=== PATIENT | male | born 1935 | race Caucasian/White ===

== ENCOUNTER 2016-11-09 15:50 | Observation (INO) ==
[2016-11-09 16:18] LABS: Basophils # 0.1 K/mcL (0.0-0.2); Basophils % 0.6 %; Eosinophils # 0.5 K/mcL (0.0-0.6); Eosinophils % 3.3 %; Hematocrit 46.2 % (37.5-50.1); Hemoglobin 15.3 g/dL (12.9-16.9); Lymphocytes # 2.9 K/mcL (0.6-4.6); Lymphocytes % 20.5 %; Mean Corpuscular HGB Conc 33.1 g/dL (31.6-35.5); Mean Corpuscular Hemoglobin 30.5 pg (28.0-33.3); Mean Corpuscular Volume 92.2 fL (83.0-100.0); Mean Platelet Volume 10.1 fL (9.4-12.4); Monocytes # 1.4 K/mcL (0.0-1.3); Neutrophils # 9.3 K/mcL (1.6-8.9); Platelet Count 299 K/mcL (140-400); Red Blood Count 5.01 M/mcL (4.19-5.50); Segmented Neutrophils % 64.6 %
[2016-11-09 16:27] LABS: Prothrombin Time 10.8 Seconds (9.4-12.1)
[2016-11-09 16:29] LABS: Activated Partial Thrombo Time 34.1 Seconds (26.0-36.0); BUN/Creatinine Ratio 22 (6-26); Blood Urea Nitrogen 23 mg/dL (8-26); Calcium 9.3 mg/dL (8.6-10.8); Carbon Dioxide 26 mEq/L (19-29); Chloride 106 mEq/L (98-109); Glucose 106 mg/dL (70-99); Osmolality,Calculated 294 (280-300); Potassium 4.1 mEq/L (3.5-4.5); Sodium 140 mEq/L (136-145); eGFR For African Americans > 60 (> 60); eGFR For Non-African Americans > 60 (> 60)
--- NOTE | 2016-11-09 16:35 | Emergency Department Note ---
Disposition Clinical Impression: TIA (transient ischemic attack) Disposition: Admitted As Inpatient Condition: Good Time of Disposition: 18:08 Neuro HPI - General Chief Complaint: ED Neuro Symptoms/Deficit Stated Complaint: ester sharp poss tia Time Seen by Provider: 11/09/16 15:57 Source: patient Mode of arrival: ambulatory Limitations: no limitations Nursing Notes Reviewed: Yes Vital Signs Reviewed: Yes - History of Present Illness HPI Narrative: MA 10-year-old male with history of ischemic stroke approximately 3 years ago with residual right-sided weakness presents for abrupt onset of garbled speech and left-sided facial droop that occurred 30 minutes prior to arrival. According to his , he has been having spells like this occasionally for the last week as much as once a day that will last only a few minutes each time. This time, the symptoms did not go away and she was able to convince him to come to the hospital. She denied any other signs of problems including weakness. She states that during the episode he was able to ambulate at his baseline. She states that he is confused at baseline as well and this is not worse from usual. She states that on arrival to the emergency department his symptoms appear to be partially improved, but he is still not back to normal. He has no known malignancy. No known ischemic stroke in the last year. No known hemorrhagic stroke. No recent trauma or surgery. No black or bloody stools. - Related Data Home Medications: Home Medications Medication Instructions Recorded Confirmed Amlodipine Besylate/Benazepril 1 cap PO 11/09/16 11/09/16 [Lotrel 5-10 mg Capsule] Aspirin 81 mg PO 11/09/16 11/09/16 Cholecalciferol (Vitamin D3) 1,000 unit PO [facility] 11/09/16 11/09/16 [Vitamin D] Clopidogrel [Plavix] 75 mg PO [facility] 11/09/16 11/09/16 Cyanocobalamin (Vitamin B-12) 1,000 mcg PO [facility] 11/09/16 11/09/16 [Vitamin B12] Fish Oil/Dha/Epa [Fish Oil 1,200 1,200 mg PO [facility] 11/09/16 11/09/16 mg Fish Oil] Multivitamin [One Daily Essential] 1 tab PO [facility] 11/09/16 11/09/16 Simvastatin [Zocor] 20 mg PO 11/09/16 11/09/16 Tamsulosin [Flomax] 0.4 mg PO HS 11/09/16 11/09/16 Allergies/Adverse Reactions: Allergies Allergy/AdvReac Type Severity Reaction Status Date / Time No Known Allergies Allergy Verified 11/09/16 16:15 All systems ED: reviewed and negative except as stated. Past Medical History - Past Medical History Attestation: Yes The following information was validated with the patient. Source: patient Medical history: Reports: hyperlipidemia, hypertension, TIA Psychiatric history: Reports: no psych history - Social History Smoking Status: Former smoker Smokeless Tobacco Status: No Alcohol use: Reports: none Drug use: Reports: none Physical Exam - Head Head exam: atraumatic, normocephalic, normal inspection - Eye Eye exam: Present: normal appearance, PERRL, EOMI - ENT ENT exam: normal exam, normal oropharynx, mucous membranes moist - Neck Neck exam: Present: normal inspection, full ROM, trachea midline - Chest Chest inspection: Present: normal inspection, symmetric chest wall rise - Respiratory Respiratory exam: Clear to auscultation bilaterally without wheezes rales or rhonchi Cardiovascular Cardiovascular exam: Present: regular rate, normal rhythm, normal heart sounds - Abdominal Exam Abdominal exam: Present: soft, Non-Tender. Absent: tenderness, distention, guarding, rebound, rigidity - Extremities Exam Extremities exam: Present: normal inspection, full ROM - Expanded Lower Extremity Exam Hip/Pelvis exam: Present: normal inspection, full ROM - Back Exam Back exam: Present: normal inspection, full ROM. Absent: tenderness, CVA tenderness (R), CVA tenderness (L) - Neurological Exam Neurological exam: Present: alert, oriented to person and place which is at baseline per his spouse. CN II-XII intact. Speech is very slightly slurred which is at his baseline per his spouse. No facial droop or sensory deficits to the face or extremities. No drift and alternatives. Normal finger to nose and heel to valdovinos. Motor is 5 out of 5 in the left upper and lower extremities and 4 out of 5 in the right upper and lower extremities. - Psychiatric Psychiatric exam: Present: normal affect, normal mood - Skin Skin exam: Present: warm, dry, intact, normal color - General Limitations: no limitations General appearance: alert, in no apparent distress Course - Reevaluation(s) Reevaluation #1: 80-year-old male with strokelike symptoms that are completely resolved at this time. Seen by [facility] neurologist by obdulio. Symptoms were resolved at that time as well. No need for TPA at this time. CT scan is negative for hemorrhage, it is concerning for possible tiny infarcts. The patient will need to be admitted for his TIA for ultrasounds of his carotids, heart, and an MRI of his brain. Family and patient are agreeable to this. Patient admitted in stable condition. Accepted by Dr. Solitario. Time: 18:07 Vital Signs Temperature 97.9 F 11/09/16 15:55 Pulse Rate 65 11/09/16 15:55 Respiratory Rate 18 11/09/16 15:55 Blood Pressure 158/85 11/09/16 15:55 O2 Sat by Pulse Oximetry 96 11/09/16 15:55 Temperature 98.4 F 11/09/16 19:50 Pulse Rate 79 11/09/16 19:50 Respiratory Rate 15 11/09/16 19:50 Blood Pressure 143/82 11/09/16 19:50 O2 Sat by Pulse Oximetry 94 L 11/09/16 19:50 Oxygen Delivery Oxygen Delivery Room Air Neuro Symptoms/Deficit - Lab Data Lab results reviewed: Yes I reviewed the patient's lab results. Result diagrams: 11/09/16 16:09 11/09/16 16:09 Lab Results 11/09/16 11/09/16 11/09/16 Range/Units 16:00 16:09 16:09 WBC 14.4 H (4.3-11.1) K/mcL RBC 5.01 (4.19-5.50) M/mcL Hgb 15.3 (12.9-16.9) g/dL Hct 46.2 (37.5-50.1) % MCV 92.2 (83.0-100.0) fL MCH 30.5 (28.0-33.3) pg MCHC 33.1 (31.6-35.5) g/dL RDW 14.0 (11.5-14.5) % Plt Count 299 (140-400) K/mcL MPV 10.1 (9.4-12.4) fL Immature Gran % 1.0 (0-4) % Seg Neutrophils % 64.6 % Lymphocytes % 20.5 % Monocytes % 10.0 % Eosinophils % 3.3 % Basophils % 0.6 % Neutrophils # 9.3 H (1.6-8.9) K/mcL Lymphocytes # 2.9 (0.6-4.6) K/mcL Monocytes # 1.4 H (0.0-1.3) K/mcL Eosinophils # 0.5 (0.0-0.6) K/mcL Basophils # 0.1 (0.0-0.2) K/mcL PT 10.8 (9.4-12.1) Seconds INR 1.0 APTT 34.1 (26.0-36.0) Seconds Sodium (136-145) mEq/L Potassium (3.5-4.5) mEq/L Chloride (98-109) mEq/L Carbon Dioxide (19-29) mEq/L BUN (8-26) mg/dL Creatinine (0.72-1.25) mg/dL Est GFR ( Amer) (> 60) Est GFR (Non-Af Amer) (> 60) BUN/Creatinine Ratio (6-26) Glucose (70-99) mg/dL POC Glucose 96 H (58-89) Calculated Osmolality (280-300) Calcium (8.6-10.8) mg/dL Troponin I (0-0.03) ng/mL 11/09/16 11/09/16 Range/Units 16:09 16:09 WBC (4.3-11.1) K/mcL RBC (4.19-5.50) M/mcL Hgb (12.9-16.9) g/dL Hct (37.5-50.1) % MCV (83.0-100.0) fL MCH (28.0-33.3) pg MCHC (31.6-35.5) g/dL RDW (11.5-14.5) % Plt Count (140-400) K/mcL MPV (9.4-12.4) fL Immature Gran % (0-4) % Seg Neutrophils % % Lymphocytes % % Monocytes % % Eosinophils % % Basophils % % Neutrophils # (1.6-8.9) K/mcL Lymphocytes # (0.6-4.6) K/mcL Monocytes # (0.0-1.3) K/mcL Eosinophils # (0.0-0.6) K/mcL Basophils # (0.0-0.2) K/mcL PT (9.4-12.1) Seconds INR APTT (26.0-36.0) Seconds Sodium 140 (136-145) mEq/L Potassium 4.1 (3.5-4.5) mEq/L Chloride 106 (98-109) mEq/L Carbon Dioxide 26 (19-29) mEq/L BUN 23 (8-26) mg/dL Creatinine 1.03 (0.72-1.25) mg/dL Est GFR ( Amer) > 60 (> 60) Est GFR (Non-Af Amer) > 60 (> 60) BUN/Creatinine Ratio 22 (6-26) Glucose 106 H (70-99) mg/dL POC Glucose (58-89) Calculated Osmolality 294 (280-300) Calcium 9.3 (8.6-10.8) mg/dL Troponin I 0.01 (0-0.03) ng/mL - Radiology Data Radiology results reviewed: Yes I reviewed the patient's radiology results. No acute hemorrhage per radiology. - EKG Data EKG attestation: Yes I reviewed and interpreted this EKG. EKG results narrative: Normal sinus rhythm at 67 with normal axis and intervals. No ST elevation or depression. There are occasional PVCs. No pathologic Q waves. Normal EKG available. Attestation Statement - Attestation Attestation: For this encounter, I have reviewed the resident, PIG FARM MANAGER, or PA documentation, treatment plan, and medical decision making; and I have had face to face time with this patient. 80-year-old male brought in by EMS for concerns of possible TVA. Daughter states she noticed the patient had an acute change in his speech and had left lower facial droop. The patient had a CVA 3 years ago which left him with right lower extremity weakness. Family states the patient has had multiple TIAs over the past 3 months. Today the patient has dysarthria on my initial evaluation giving him an NIH score of 1. The stroke protocol was initiated the patient was sent for CT of the head. CT of the head showed no acute intracranial hemorrhage however it did show evidence of possible ischemic disease in the past. [facility] neurology was consulted who recommended not giving TPA. Patient was admitted to the hospital for further care and evaluation.
[2016-11-09] MEDS ORDERED: Aspirin 325 MG TABLET PO ONE (18:03)
[2016-11-09] MEDS ORDERED: Naloxone 0.4 MG/ML INJ IVP PRN (21:32)
[2016-11-09] MEDS ORDERED: Acetaminophen 325 MG TABLET PO PRN (21:32)
[2016-11-09] MEDS ORDERED: *HR* Heparin 5,000 UNIT/ML VIAL ONE (22:24)
[2016-11-09] MEDS: *HR* Heparin 5,000 UNIT/ML VIAL SQ SCH (22:28)
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
[2016-11-10 05:13] LABS: Basophils # 0.1 K/mcL (0.0-0.2); Basophils % 0.5 %; Eosinophils # 0.4 K/mcL (0.0-0.6); Eosinophils % 2.8 %; Hematocrit 43.3 % (37.5-50.1); Hemoglobin 14.6 g/dL (12.9-16.9); Immature Granulocytes % 0.9 % (0-4); Lymphocytes # 3.3 K/mcL (0.6-4.6); Lymphocytes % 21.7 %; Mean Corpuscular HGB Conc 33.7 g/dL (31.6-35.5); Mean Corpuscular Hemoglobin 31.2 pg (28.0-33.3); Mean Corpuscular Volume 92.5 fL (83.0-100.0); Mean Platelet Volume 10.6 fL (9.4-12.4); Monocytes # 1.2 K/mcL (0.0-1.3); Monocytes % 7.9 %; Platelet Count 276 K/mcL (140-400); Red Blood Count 4.68 M/mcL (4.19-5.50); Red Cell Distribution Width 14.2 % (11.5-14.5); Segmented Neutrophils % 66.2 %
[2016-11-10 05:33] LABS: Alanine Aminotransferase 31 Units/L (0-55); Albumin 3.6 g/dL (3.5-5.0); Albumin/Globulin Ratio 1.2 (1.1-2.2); Alkaline Phosphatase 67 Units/L (38-126); Aspartate Amino Transferase 33 Units/L (5-34); BUN/Creatinine Ratio 21 (6-26); Bilirubin,Total 0.8 mg/dL (0.2-1.2); Blood Urea Nitrogen 19 mg/dL (8-26); Calcium 8.8 mg/dL (8.6-10.8); Carbon Dioxide 24 mEq/L (19-29); Chloride 108 mEq/L (98-109); Chol/HDL Ratio 2.4 (0-4.9); Cholesterol 144 mg/dL (< 200); Globulin 2.9 g/dL (2.4-3.5); Glucose 104 mg/dL (70-99); HDL Cholesterol 60 mg/dL (40-59); LDL Cholesterol,Calculated 70 mg/dL (0-99); Magnesium 2.2 mg/dL (1.6-2.6); Osmolality,Calculated 293 (280-300); Potassium 3.9 mEq/L (3.5-4.5); Sodium 140 mEq/L (136-145); Total Protein 6.5 g/dL (6.0-8.3); Triglycerides 70 mg/dL (< 150); eGFR For African Americans > 60 (> 60); eGFR For Non-African Americans > 60 (> 60)
[2016-11-10] MEDS: *HR* Heparin 5,000 UNIT/ML VIAL SQ SCH ×2 (06:21→18:29)
[2016-11-10] MEDS: Cholecalciferol (D-3) 1,000 UNIT TABLET PO SCH (08:26)
[2016-11-10] MEDS: Aspirin 81 MG TAB.CHEW PO SCH (08:26)
[2016-11-10] MEDS ORDERED: Famotidine 20 MG TABLET PO SCH (09:00)
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
[2016-11-10 10:07] LABS: Amphetamine Screen,Urine Negative ng/mL (Cutoff=1000); Barbiturate Screen,Urine Negative ng/mL (Cutoff=200); Benzodiazepines Screen,Urine Negative ng/mL (Cutoff=200); Cannabinoid Screen,Urine Negative ng/mL (Cutoff = 50); Cocaine Screen,Urine Negative ng/mL (Cutoff= 300); Opiate Screen,Urine Negative ng/mL (Cutoff=300); Phencyclidine Screen,Urine Negative ng/mL (Cutoff=25)
[2016-11-10 10:10] LABS: Bilirubin,Urine Negative (Negative); Blood,Urine Negative (Negative); Color,Urine Yellow (Yellow); Glucose,Urine (UA) Normal (Normal); Ketones,Urine Negative (Negative); Leukocyte Esterase,Urine Negative (Negative); Nitrite,Urine Negative (Negative); Protein,Urine Negative (Neg-Trace); Specific Gravity,Urine 1.016 (1.010-1.025); Urobilinogen,Urine Normal (Normal)
[2016-11-10 10:20] LABS: Clarity,Urine Hazy (Clear)
--- NOTE | 2016-11-10 10:55 | Neurology - Consult Note ---
Date of Encounter: 11/10/16 Time of Encounter: 10:54 Assessment and Plan (1) TIA (transient ischemic attack) Current Visit: Yes Status: Acute - seizure vs. TIA - patient reportedly has had 2 episodes on day of admission and 2 this AM which include dysarthria, aphasia, and "lip smacking" where he pouts out his lips and then has a left droop, no weakness is observed - however, no tongue trauma, incontinence, or loss of consciousness - he returns to baseline within minutes of these episodes without residual weakness/deficits and remains alert during episodes - ABCD2 score of 2 (age and speech disturbance without weakness) which is LOW risk - upon initial presentation he had dysarthria with NIH score 1 and was not appropriate for tPA - do not recommend further anticoagulation given history of frequent falls and low risk - he is on chronic ASA 81 and Plavix which he was placed on by physicians at [facility] 3 years ago - MR brain shows microvascular changes and chronic lacunar infarcts but no acute infarct - Carotid doppler preliminary report is nonstenotic plaque, awaiting final report - ECHO EF 55% with hypokinesis of basal inferior wall and mild diastolic dysfunction with normal LA size - EEG ordered by hospitalist Qualifiers: Transient cerebral ischemia type: unspecified Qualified Code(s): G45.9 - Transient cerebral ischemic attack, unspecified (2) Focal seizures Current Visit: Yes Status: Acute - clinically, description of episodes sound like partial seizures with automatism - patient appears to have a distinct period of post-ictal state of slight confusion, these episodes occur at 20 seconds at a time and resolves, does not appear to be TIAs - absent tongue trauma and incontinence - reportedly he remained standing during the episode this morning - EEG ordered and reviewed with Dr. Bateman, no seizure activity observed - would recommend starting Dilantin with a loading dose of 500mg IV and then continue with 200mg PO, will have him follow up with Dr. Bateman in Neurology clinic as outpatient in 2-3 weeks (3) Dementia Current Visit: Yes Status: Suspected - documented memory loss and history of Namenda use but has been discontinued - no cog wheel rigidity appreciated but appears to have a shuffling gait that may suggest Parkinson's - patient is alert and oriented to only person, with assistance he knows that he is in a hospital but believes he is in [facility], he knows it is Sunday but does not know the year and thinks Dewey is the president - MR brain shows microvascular changes and chronic lacunar infarcts without hydrocephalus Qualifiers: Dementia type: unspecified type Dementia behavioral disturbance: without behavioral disturbance Qualified Code(s): F03.90 - Unspecified dementia without behavioral disturbance History of Present Illness Chief complaint: TIA/Dementia/Seizure HPI: Mr. Willard is a 80 year old male with a history of traumatic brain injury, TIA, hyperlipidemia, hypertension presents to ED for possible slurred speech and facial droop. Patient was admitted to hospitals from ED for possible TIA. Neurology was consulted for possible TIA as well as seizure like activity. Daughter and at bedside at assist with history. Patient has reportedly had multiple episodes of dysarthria, left sided facial droop, memory loss of the past several days. Reports 2 episodes on Wednesday 11/08 and 2 additional episodes yesterday 11/09 with full resolution. He was diagnosed with TIA a few years ago at [facility] in [place] and reportedly has some residual right sided weakness. Today he was reported to have 2 similar TIA episodes which by daughter was described as left facial droop, dysarthria, aphasia, and lip tremoring. He was standing and appeared alert to his surroundings. He attempted to take pills from a pillbox in his pocket during the episode and they were confiscated by medical staff. Immediately after patient asked why we did that. He has long-standing history of memory loss a follows with his primary care physician Dr. Schrader. Recently discontinued Namenda because he didn't like the way it made him feel. He denies any cardiac ischemic disease. Denies any irregular heart rhythms. Denies any history of seizures. Denies any recent illness or recent travel. Patient denies any headache, chest pain, shortness of breath. He is a former smoker but no reported COPD or lung disease. On evaluation patient remains alert but is only oriented person. He does know that today is Sunday and it is Inauguration Day however cannot recall who is the president, what year it is, where he is at. He appears in no acute distress. He attempts to get up and out of bed multiple times setting off the bed alarm. This education reporter that he has frequent falls at home and is high risk for falls here. He is not demonstrate any signs for seizure like activity. Past Med Surg Social Fam HX - Past Medical History Source: patient, obtained from family Medical history: hyperlipidemia, hypertension, TIA Psychiatric history: no psych history - Past Surgical History Surgical History: no surgical history - Social History Smoking Status: Former smoker (60 years x 3 ppd = 180 pack-year history) Smokeless Tobacco Status: No Alcohol use: none Drug use: none - Family History Mother History Unknown: Yes Living Status: Father History Unknown: Yes Living Status: Medications and Allergies Amlodipine Besylate/Benazepril [Lotrel 5-10 mg Capsule] 1 cap PO 11/09/16 [ History] Aspirin 81 mg PO 11/09/16 [History] Cholecalciferol (Vitamin D3) [Vitamin D] 1,000 unit PO [facility] 11/09/16 [History] Clopidogrel [Plavix] 75 mg PO [facility] 11/09/16 [History] Cyanocobalamin (Vitamin B-12) [Vitamin B12] 1,000 mcg PO [facility] 11/09/16 [History] Fish Oil/Dha/Epa [Fish Oil 1,200 mg Fish Oil] 1,200 mg PO [facility] 11/09/16 [History] Multivitamin [One Daily Essential] 1 tab PO [facility] 11/09/16 [History] Simvastatin [Zocor] 20 mg PO 11/09/16 [History] Tamsulosin [Flomax] 0.4 mg PO 11/09/16 [History] Allergies No Known Allergies Allergy (Verified 11/09/16 16:15) All Systems: A 10-system review of systems was performed and is negative for pertinent findings except as documented above in the HPI. - Constitutional Constitutional ROS IM: no fever(s), no headache(s) - Nose, Mouth, Throat Nose, mouth and throat: no dizziness - Cardiovascular Cardiovascular ROS IM: no chest pain, no chest pain at rest - Respiratory Respiratory IM: cough, no dyspnea Physical Examination - Vital Signs Vital Signs: Initial Vital Signs Temp Pulse Resp BP Pulse Ox 97.9 F 65 18 158/85 96 11/09/16 15:55 11/09/16 15:55 11/09/16 15:55 11/09/16 15:55 11/09/16 15:55 - Constitutional General appearance: comfortable - Neurologic Sensorimotor examination: intact Detailed motor examination: grossly full strength in all extremities, full strength in all major muscle groups Motor examination - right side: 02/23: deltoids, biceps, triceps, wrist flexion, wrist extension, ui software developer, hip flexors, tibialis Anterior, quadriceps, toe extension (EHL), plantarflexion Motor examination - left side: 02/23: deltoids, biceps, triceps, wrist flexion, wrist extension, hip flexors, ui software developer, quadriceps, tibialis Anterior, toe extension (EHL), plantarflexion Detailed sensory examination: intact, light touch Reflex and gait examination: intact Reflexes: Patella: 2+, Achilles: 2+ Mental Status Examination: awake, alert, oriented to person, follows commands appropriately, answers questions appropriately, no agnosia, no aphasia, no aproxia Cranial nerve examination: PERRL, EOMI, visual ybarra intact, sensory to face intact, mastication intact, no facial asymmetry is present, no dysarthria, hearing is intact symmetrically, soft palate elevates bilaterally upon phonation , gag reflex intact, flexes SCM and trapezius muscles symmetrically with full power, tongue protrudes midline, no atrophy or facial fasiculations present Cerebellar examination: no dysmetria, performs finger to nose and heel to valdovinos symmetrically without ataxia Results - Laboratory Findings CBC and BMP: 11/10/16 04:04 11/10/16 04:04 Abnormal lab findings: Abnormal lab results WBC 15.1 K/mcL (4.3-11.1) H 11/10/16 04:04 Neutrophils # 10.0 K/mcL (1.6-8.9) H 11/10/16 04:04 Glucose 104 mg/dL (70-99) H 11/10/16 04:04 POC Glucose 137 (58-89) H 11/10/16 07:55 HDL Cholesterol 60 mg/dL (40-59) H 11/10/16 04:04 Consult Discharge Plan - Plan Referrals: William Schrader DO [Primary Care Provider] - 11/21/16 10:30 am
--- NOTE | 2016-11-10 13:55 | ECHO - Doppler Report ---
Echo with Saline Contrast Name: Adriano Willard Date of Study: 11/10/2016 Date: 1935 Ht: 68.0 in Medical Record#: [id number] Age: 80 Wt: 126.0 lb Gender: Male BSA: 1.68 Order #: [id number] Location: [facility] Room #: 3B22 Reading Physician: Edouard Yi MD, [facility] Computer Tech: Irene Isaac Ordering Physician: Chris Michael MD Primary Physician: William Schrader DO Indications: Transient Ischemic Attack Impressions: LVEF 55%. There is hypokinesis of the basal inferior wall. Mild left ventricular diastolic dysfunction. Normal right ventricular size and function. No significant valvular dysfunction. Unable to estimate RVSP due to lack of TR jet. No evidence of intracardiac shunting with agitated saline contrast. Left Ventricular Wall Motion: Rest Echo Findings The basal inferior wall was hypokinetic. All other wall segments showed normal motion. Findings: Study Quality * Technically adequate exam. ECG Findings * Normal sinus rhythm. Left Ventricle * LVEF 55%. There is hypokinesis of the basal inferior wall. * Normal LV wall thickness. * Mild left ventricular diastolic dysfunction. Right Ventricle * Normal right ventricular size and function. Left Atrium * Normal left atrial size. Right Atrium * Normal right atrial size. Interatrial Septum * No evidence of intracardiac shunting with agitated saline contrast. Aorta * Normally sized aortic root. Pericardium * There is no pericardial effusion present. IVC * Normal IVC dimensions and inspiratory collapse. Aortic Valve * Trileaflet aortic valve. * Mildly sclerotic aortic valve leaflets. * No aortic stenosis. * Trace aortic regurgitation. Mitral Valve * Mildly calcified mitral valve leaflets. * No mitral stenosis. * Trace mitral regurgitation. Tricuspid Valve * Normal tricuspid valve structure. * No tricuspid stenosis. * Trace tricuspid regurgitation. * Unable to estimate RVSP due to lack of TR jet. Pulmonic Valve * Pulmonic valve not well visualized. * No pulmonic stenosis. * No pulmonic regurgitation. Contrast: Agitated saline 20 ml. Measurements: BP: 160/ 84 2D Normal Values RVIDd: 2.50 cm IVSd: 1.00 cm 0.6 - 1.0 cm LVIDd: 5.00 cm 3.7 - 5.6 cm LVPWd: 1.00 cm 0.6 - 1.1 cm LVIDs: 3.20 cm 1.5 - 3.6 cm AO: 2.80 cm < 4.0 cm LA volume: 46 Mitral Valve Peak E:.56 m/sec Peak A:1.01 m/sec E/A Ratio:0.6 Updated by Edouard Yi MD, [facility] on 11/10/2016 1:48:55 PM electronically signed on 11/10/2016 1:49:38 PM with status of Final Wall Motion Beck: 1=Normal, 2=Hypokinesis, 3=Akinesis, 4=Dyskinesis, 5=Aneurysmal, 6=Hyperkinetic, X=Not Visualized (Blank)=Missing
[2016-11-10] MEDS ORDERED: Phenytoin 500 MG in SYRINGE 1 EACH IVPB ONE (15:12)
[2016-11-10] MEDS: *HR* LORazepam 2 MG/ML VIAL IVP PRN ×3 (16:11→21:26)
--- NOTE | 2016-11-10 16:22 | Electrocardiograph Report ---
[facility] Test Date: 2016-11-09 Pat Name: Adriano Willard Department: 105 Room: 3B22 Gender: M Health Physics Technician: SONIA : 1935 Requested By: Chris Michael Order Number: [id number] Reading MD: Marielena Mallory Measurements Intervals [place] Rate: 67 P: 62 [place]: 177 QRS: 53 QRSD: 97 T: 70 QT: 389 QTc: 405 Interpretive Statements SINUS RHYTHM WITH FREQUENT VENTRICULAR PREMATURE COMPLEXES NONSPECIFIC ST \T\ T-WAVE ABNORMALITY ABNORMAL RHYTHM ECG Electronically Signed On 11-10-16 16:17:52 EST by Marielena Mallory
--- NOTE | 2016-11-10 16:53 | EEG/EMG/Oth Biometrics Report ---
EEG Procedure Report Date of procedure: 11/10/16 EEG Procedure: Routine EEG Procedure Note: Report: This EEG was acquired with standard international 10-20 electrode placement system with EKG recording. The background activity during this EEG was replaced by a mixture of theta and alpha activity with best frequency up to 8Hz. The background activity was reactive to eye openings. Sleep stages were characterized by presence of K-complexes, vertex waves and sleep spindles. There are no electricographic seizures identified during this tracing. There are no epileptiform discharges and focal slowing noted during this recording. Photic stimulation produced no abnormalities. HV not performed during this study. EKG tracing showed no significant cardiac dysarrhythmia. Impression: This is an abnormal EEG due to presence of mild diffuse background slowing. Clinical Correlation: This EEG is consistent with mild diffuse cerebral dysfunction that can be seen in patients with againg, cognitive impairment, encephalopathy, metabolic/toxic, electrolyte derangement, or other causes. Clinical correlation suggested.
--- NOTE | 2016-11-10 18:15 | Carotid Imaging Report ---
Carotid Duplex Patient Name:Adriano Willard Order Number:[id number] Procedure Date:11/10/2016 Date:1935ge:80 yrs Gender:Male Location:[facility] Room #: 3B22 Mortgage Loan Coordinator:Irene Isaac Referring MD:Chris Michael MD glass cutter hand:DO Sandrita Arevalo MD:Adriano Fabian MD Impressions: The bilateral carotid arteries have minimal plaque throughout. Recommendations: After imaging the patient returned to their room. Findings Carotid Duplex: Right: The right proximal common carotid artery has a PSV of 78 cm/s and a EDV of 10 cm/s. The right mid common carotid artery has a PSV of 59 cm/s and a EDV of 12 cm/s. The right distal common carotid artery has a PSV of 60 cm/s and a EDV of 13 cm/s. There is nonstenotic plaque in the right bifurcation with a PSV of 82 cm/s and a EDV of 13 cm/s. There is smooth heterogeneous plaque. There is nonstenotic plaque in the right proximal internal carotid artery with a PSV of 104 cm/s and a EDV of 15 cm/s. There is smooth heterogeneous plaque. The right mid internal carotid artery has a PSV of 73 cm/s and a EDV of 19 cm/s. The right distal internal carotid artery has a PSV of 82 cm/s and a EDV of 23 cm/s. There is nonstenotic plaque in the right eca with a PSV of 102 cm/s and a EDV of 13 cm/s. There is smooth heterogeneous plaque. The right vertebral artery has a PSV of 48 cm/s and a EDV of 10 cm/s. Left: The left proximal common carotid artery has a PSV of 120 cm/s and a EDV of 18 cm/s. The left mid common carotid artery has a PSV of 66 cm/s and a EDV of 12 cm/s. The left distal common carotid artery has a PSV of 69 cm/s and a EDV of 13 cm/s. The left bifurcation has a PSV of 56 cm/s and a EDV of 9 cm/s. There is nonstenotic plaque in the left proximal internal carotid artery with a PSV of 45 cm/s and a EDV of 11 cm/s. There is smooth heterogeneous plaque. The left mid internal carotid artery has a PSV of 71 cm/s and a EDV of 17 cm/s. The left distal internal carotid artery has a PSV of 79 cm/s and a EDV of 20 cm/s. There is nonstenotic plaque in the left eca with a PSV of 105 cm/s and a EDV of 15 cm/s. There is smooth heterogeneous plaque. The left vertebral artery has a PSV of 55 cm/s and a EDV of 7 cm/s. Carotid Results Right PSV EDV Assessment Proximal CCA 78 10 Mid CCA 59 12 Distal CCA 60 13 Bifurcation 82 13 Proximal ICA 104 15 Mid ICA 73 19 Distal ICA 82 23 ECA 102 13 Vertebral Artery 48 10 Left PSV EDV Assessment Proximal CCA 120 18 Mid CCA 66 12 Distal CCA 69 13 Bifurcation 56 9 Proximal ICA 45 11 Mid ICA 71 17 Distal ICA 79 20 ECA 105 15 Vertebral Artery 55 7 Ratio's Right ICA/CCA Ratio: 1.80 ICA/CCA Values: 104/59 Left ICA/CCA Ratio: 1.20 ICA/CCA Values: 79/66 Updated by Adriano Fabian MD on 11/10/2016 6:11:36 PM electronically signed on 11/10/2016 6:11:47 PM with status of Final
[2016-11-10] MEDS: Famotidine 20 MG TABLET PO SCH (21:15)
[2016-11-11] MEDS: *HR* LORazepam 2 MG/ML VIAL IVP PRN (01:09)
[2016-11-11 06:57] LABS: Basophils # 0.1 K/mcL (0.0-0.2); Basophils % 0.5 %; Eosinophils # 0.3 K/mcL (0.0-0.6); Eosinophils % 1.7 %; Hematocrit 44.5 % (37.5-50.1); Hemoglobin 15.2 g/dL (12.9-16.9); Immature Granulocytes % 0.6 % (0-4); Lymphocytes # 2.4 K/mcL (0.6-4.6); Lymphocytes % 13.7 %; Mean Corpuscular HGB Conc 34.2 g/dL (31.6-35.5); Mean Corpuscular Hemoglobin 31.3 pg (28.0-33.3); Mean Corpuscular Volume 91.6 fL (83.0-100.0); Mean Platelet Volume 9.9 fL (9.4-12.4); Monocytes # 1.6 K/mcL (0.0-1.3); Monocytes % 9.3 %; Platelet Count 256 K/mcL (140-400); Red Blood Count 4.86 M/mcL (4.19-5.50); Red Cell Distribution Width 13.9 % (11.5-14.5); Segmented Neutrophils % 74.2 %
[2016-11-11 07:14] LABS: BUN/Creatinine Ratio 21 (6-26); Blood Urea Nitrogen 19 mg/dL (8-26); Carbon Dioxide 24 mEq/L (19-29); Chloride 106 mEq/L (98-109); Glucose 118 mg/dL (70-99); Osmolality,Calculated 291 (280-300); Potassium 4.1 mEq/L (3.5-4.5); Sodium 139 mEq/L (136-145); eGFR For African Americans > 60 (> 60); eGFR For Non-African Americans > 60 (> 60)
--- NOTE | 2016-11-11 12:45 | Internal Med Progress Note ---
Date of Encounter: 11/11/16 Time of Encounter: 12:42 - Assessment and plan (1) Focal seizures Current Visit: Yes Status: Acute Assessment and plan: Head CT negative. Brain MRI negative for acute processes, EEG reviewed and showed no significant abnormality, except mild diffuse background slowing. Symptoms are most suggestive of partial epilespy than TIA as per neurology. Neurology on board. As per neurology, he might be having partial seizures, was started on loading dose of Dilantin yesterday. To be started on maintenance dose with oral Dilantin today. Patient appears very sleepy and drowsy however wakes up on verbal command, and is alert and oriented. We will continue to observe if the somnolence is secondary to Dilantin, we will have to adjust the dose. f/u with neurology. (2) Former heavy tobacco smoker Current Visit: Yes Status: Chronic Assessment and plan: Patient was a 3 pack per day smoker for 60 years, not a current smoker - Time Spent With Patient 25 - 35 minutes - Subjective Interval history: Patient seen at the bedside, appears very sleepy, but weeks up to verbal command. Alert and oriented 3. Was started on Dilantin loading dose by neurology yesterday for possible partial seizures. Has not had any recurrent seizures or abnormal movements at this time. - Constitutional Vitals: Temp Pulse Resp BP Pulse Ox 97.6 F 90 16 101/69 90 L 11/11/16 11:03 11/11/16 11:03 11/11/16 11:03 11/11/16 11:03 11/11/16 11:03 General appearance: Present: cooperative, A&O X 3, pleasant, no acute distress, answers questions appropriately Exam: General appearance: Present: cooperative, A&O X 3, pleasant, no acute distress, answers questions appropriately - Head Head exam: Present: atraumatic, normocephalic - Eye Eye exam: Present: PERRL, conjuntiva pink, sclera anicteric Pupils: Present: PERRL - Neck Neck exam general surgery: Present: supple, trachea midline. Absent: lymphadenopathy - Respiratory Respiratory exam: Present: CTAB. Absent: accessory muscle use, rales, respiratory distress, rhonchi, wheezes - Cardiovascular Cardiovascular exam: Present: RRR, +S1, +S2. Absent: diastolic murmur, gallop, rubs, systolic murmur - GI/Abdominal GI/Abdominal exam: Present: normal bowel sounds, soft, no peritoneal signs. Absent: distended, tenderness - Extremities Exam Extremities exam: Present: warm, radial pulses palpable and symetrical. Absent : calf tenderness, cyanotic, pedal edema - Neurological Exam Neurological exam: Present: alert, CN II-XII intact, oriented X3, no focal deficits, strengths equal and symetr throughout, Absent: pronater drift, speech deficit - Skin Skin exam: Present: dry, intact, normal color, warm Internal Medicine: Result - Labs CBC & Chem 7: 11/11/16 06:52 11/11/16 06:52 Labs: Short CBC 11/11/16 Range/Units 06:52 WBC 17.5 H (4.3-11.1) K/mcL Hgb 15.2 (12.9-16.9) g/dL Hct 44.5 (37.5-50.1) % Plt Count 256 (140-400) K/mcL Neutrophils # 13.0 H (1.6-8.9) K/mcL BMP 11/11/16 06:52 Sodium 139 Potassium 4.1 Chloride 106 Carbon Dioxide 24 BUN 19 Creatinine 0.91 Glucose 118 H Calcium 9.0 - ABG Interpretation ABG results: PT/INR, D-dimer PT 10.8 Seconds (9.4-12.1) 11/09/16 16:09 Consult Discharge Plan - Plan Referrals: William Schrader DO [Primary Care Provider] - 11/21/16 10:30 am
[2016-11-11] MEDS: *HR* Heparin 5,000 UNIT/ML VIAL SQ SCH ×2 (16:43→21:24)
[2016-11-11] MEDS: Famotidine 20 MG TABLET PO SCH ×2 (16:43→21:23)
[2016-11-11] MEDS: Cholecalciferol (D-3) 1,000 UNIT TABLET PO SCH (16:43)
[2016-11-11] MEDS: Aspirin 81 MG TAB.CHEW PO SCH (16:43)
[2016-11-12] MEDS: *HR* Heparin 5,000 UNIT/ML VIAL SQ SCH (06:17)
[2016-11-12] MEDS: Famotidine 20 MG TABLET PO SCH (08:40)
[2016-11-12] MEDS: Aspirin 81 MG TAB.CHEW PO SCH (08:40)
[2016-11-12] MEDS: Cholecalciferol (D-3) 1,000 UNIT TABLET PO SCH (08:40)
[2016-11-12 10:03] LABS: Basophils # 0.1 K/mcL (0.0-0.2); Basophils % 0.7 %; Eosinophils # 0.5 K/mcL (0.0-0.6); Eosinophils % 3.7 %; Hematocrit 43.9 % (37.5-50.1); Hemoglobin 14.6 g/dL (12.9-16.9); Immature Granulocytes % 1.1 % (0-4); Lymphocytes % 21.1 %; Mean Corpuscular HGB Conc 33.3 g/dL (31.6-35.5); Mean Corpuscular Hemoglobin 30.9 pg (28.0-33.3); Mean Corpuscular Volume 92.8 fL (83.0-100.0); Monocytes # 1.2 K/mcL (0.0-1.3); Monocytes % 8.5 %; Neutrophils # 9.2 K/mcL (1.6-8.9); Platelet Count 266 K/mcL (140-400); Red Blood Count 4.73 M/mcL (4.19-5.50); Red Cell Distribution Width 14.2 % (11.5-14.5); Segmented Neutrophils % 64.9 %
[2016-11-12 11:37] VITALS: BP 109/72
--- NOTE | 2016-11-12 12:26 | Discharge Summary ---
Date of Encounter: 11/12/16 Time of Encounter: 12:24 - Discharge Diagnosis (1) Focal seizures Priority: Primary Status: Acute (2) Former heavy tobacco smoker Priority: Secondary Status: Chronic - Discharge Medications Prescriptions: Phenytoin ER [Dilantin ER] 200 mg PO DAILY #60 capsule Home Medications: Amlodipine Besylate/Benazepril [Lotrel 5-10 mg Capsule] 1 cap PO HS 11/09/16 [ History] Aspirin 81 mg PO HS 11/09/16 [History] Cholecalciferol (Vitamin D3) [Vitamin D3] 1,000 unit PO QAM 11/09/16 [History] Clopidogrel [Plavix] 75 mg PO QAM 11/09/16 [History] Cyanocobalamin (Vitamin B-12) [Vitamin B12] 1,000 mcg PO QAM 11/09/16 [History] Fish Oil/Dha/Epa [Fish Oil 1,200 mg Fish Oil] 1,200 mg PO QAM 11/09/16 [History] Multivitamin [One Daily Essential] 1 tab PO QAM 11/09/16 [History] Simvastatin [Zocor] 20 mg PO HS 11/09/16 [History] Tamsulosin [Flomax] 0.4 mg PO HS 11/09/16 [History] Phenytoin ER [Dilantin ER] 200 mg PO DAILY #60 capsule 11/12/16 [Rx] Allergies/Adverse Reactions: Allergies No Known Allergies Allergy (Verified 11/09/16 16:15) Procedures/tests Complete & Pending: Procedures Performed prior 72 hours Category Date Time Status MR head/brain wo con [MR] Routine MRI 11/09/16 21:32 Completed ECG 12 lead ECG [ECG] AM 0600 Y 11/10/16 06:00 Completed EV carotid duplex imaging BI Routine Y 11/10/16 21:32 Completed EV echocardiogram Routine Y 11/10/16 21:32 Completed Date of admission: 11/09/16 18:33 Primary care physician: William Schrader Consults: 11/09/16 21:26 Consult to Neurology [CONS] Routine Consulting Provider: Neurology [facility] Reason for Consult: TIA; dementia Call Completed: No Consult to Speech Therapy [CONS] Routine Comment: Evaluate, develop and implement POC Reason for Consult: TIA Call Completed: No 11/09/16 21:31 Consult to Occupational Therapy [CONS] Routine Comment: Evaluate, develop and implement POC Consult to Physical Therapy [CONS] Routine Comment: Evaluate, develop and implement POC 11/10/16 08:06 Consult to Fixed Income Manager [CONS] Routine Reason for SW Consult: daughter stating she feels her mother has Munchausens and states she is drugging the patient to keep him sick. 11/10/16 14:03 Consult to Interpret Exam [CONS] Routine Consulting Provider: Edouard Schrader Consult to Interpret Exam: Interpret EEG Discharging clinician: Azucena Regan Anticipated date of discharge: 11/12/16 - Patient Status Disposition: Home Health Service Condition: Fair Functional capacity at discharge: independent ambulation Overall status at discharge: patient is back to baseline - Discharge Instructions Follow Up With: William Schrader DO [Primary Care Provider] - 11/21/16 10:30 am (Call to make an appointment in 7-10 days) Eduardo Bateman MD [Partnered Physician] - (Web request made, if not contacted for an appointment please call for an appointment in 2 weeks) - Diet and Activity Activity: as per physical therapy Diet: advance to your usual diet Interval History: Mr. Willard is a 80 year old male with a history of traumatic brain injury, TIA, hyperlipidemia, hypertension presents to ED for possible slurred speech and facial droop. Patient was admitted to hospitals from ED for possible TIA. Neurology was consulted for possible TIA as well as seizure like activity. Daughter and at bedside at assist with history. Patient has reportedly had multiple episodes of dysarthria, left sided facial droop, memory loss of the past several days. Reports 2 episodes on Wednesday 11/08 and 2 additional episodes yesterday 11/09 with full resolution. He was diagnosed with TIA a few years ago at [facility] in [place] and reportedly has some residual right sided weakness. Today he was reported to have 2 similar TIA episodes which by daughter was described as left facial droop, dysarthria, aphasia, and lip tremoring. He has long-standing history of memory loss a follows with his primary care physician Dr. Schrader. Recently discontinued Namenda because he didn' t like the way it made him feel. He denies any cardiac ischemic disease. Denies any irregular heart rhythms. Denies any history of seizures. Denies any recent illness or recent travel. Patient denies any headache, chest pain, shortness of breath. He is a former smoker but no reported COPD or lung disease. Hospital course: Patient has been experiencing within the last few months of recurrent episodes of sudden alteration in his mental status, speech arrest, facial distortion, mouth movements lasting 20 to 30 seconds in duration, during which he would not be able to respond but does not lose his consciousness. After the spell he would be confused and tired. He has been having these with more frequency within the last few days, up to few times a day. Does have cognitive impairment with short memory loss per family. MRI of brain showed no acute infarct. carotid artery duplex and echo showed significant pathology that can explain his clinical symptoms. EEG reviewed and showed no significant abnormality, except mild diffuse background slowing. Symptoms are most suggestive of partial epilespy than TIA. was started on dilantin by neurology. he improved on dilantin and had no further episodes on dilantin. his mental status improved and was alert and oriented x3. he is being dc today on dilantin 200mg daily. Goal of target level 5-10 in an elderly. he will be given f/u to see Dr. Bateman as OP. Time spent discussing smoking cessation with patient: more than 10 minutes - Time Spent with Patient Total time spent providing and/or coordinating discharge services: Greater than 30 minutes - Constitutional Vitals: Temp Pulse Resp BP Pulse Ox 98.0 F 87 16 109/72 95 11/12/16 07:30 11/12/16 07:30 11/12/16 07:30 11/12/16 07:30 11/12/16 07:30 General appearance: Present: cooperative, A&O X 3, pleasant, no acute distress, answers questions appropriately Exam: General appearance: Present: cooperative, A&O X 3, pleasant, no acute distress, answers questions appropriately Exam: - Head Head exam: Present: atraumatic, normocephalic - Eye Eye exam: Present: PERRL, conjuntiva pink, sclera anicteric Pupils: Present: PERRL - Neck Neck exam general surgery: Present: supple, trachea midline. Absent: lymphadenopathy - Respiratory Respiratory exam: Present: CTAB. Absent: accessory muscle use, rales, respiratory distress, rhonchi, wheezes - Cardiovascular Cardiovascular exam: Present: RRR, +S1, +S2. Absent: diastolic murmur, gallop, rubs, systolic murmur - GI/Abdominal GI/Abdominal exam: Present: normal bowel sounds, soft, no peritoneal signs. Absent: distended, tenderness - Extremities Exam Extremities exam: Present: warm, radial pulses palpable and symetrical. Absent : calf tenderness, cyanotic, pedal edema - Neurological Exam Neurological exam: Present: alert, CN II-XII intact, oriented X3, no focal deficits, strengths equal and symetr throughout, Absent: pronater drift, speech deficit - Skin Skin exam: Present: dry, intact, normal color, warm
--- NOTE | 2016-11-12 12:27 | Physician Discharge Referral ---
Home Health/Hosp Referral Info Transfer to: Home Health Attending Provider: ashley ashby - Diagnosis (1) Focal seizures Status: Acute (2) Former heavy tobacco smoker Status: Chronic - Respiratory Orders Smoking Cessation: Smoking cessation has been advised. For more information, call the [place] Tobacco Quit Line at 7-973-IQWP-NOW. - Diet/Nutrition Diet/Nutrition Orders: Regular - Activity Activity Orders: Ambulate, Chair - Services Needed Following services are medically necessary services: Nursing, Home Health Aide, Physical Therapy, Occupational Therapy - Transfer Medications Prescriptions: Phenytoin ER [Dilantin ER] 200 mg PO DAILY #60 capsule Home Medications: Amlodipine Besylate/Benazepril [Lotrel 5-10 mg Capsule] 1 cap PO HS 11/09/16 [ History] Aspirin 81 mg PO HS 11/09/16 [History] Cholecalciferol (Vitamin D3) [Vitamin D3] 1,000 unit PO QAM 11/09/16 [History] Clopidogrel [Plavix] 75 mg PO QAM 11/09/16 [History] Cyanocobalamin (Vitamin B-12) [Vitamin B12] 1,000 mcg PO QAM 11/09/16 [History] Fish Oil/Dha/Epa [Fish Oil 1,200 mg Fish Oil] 1,200 mg PO QAM 11/09/16 [History] Multivitamin [One Daily Essential] 1 tab PO QAM 11/09/16 [History] Simvastatin [Zocor] 20 mg PO HS 11/09/16 [History] Tamsulosin [Flomax] 0.4 mg PO 11/09/16 [History] Phenytoin ER [Dilantin ER] 200 mg PO DAILY #60 capsule 11/12/16 [Rx] Allergies/Adverse Reactions: Allergies No Known Allergies Allergy (Verified 11/09/16 16:15) Certification: Further, I certify that my clinical findings support that this patient is homebound (i.e. absences from home require considerable and taxing effort and are for medical reasons or jain services or infrequently or short duration when for other reasons) because: Homebound Reason: Patient requires assistance of a person or device to safely leave home Attestation: My signature below is to certify that this patient is under my care and that I, or nurse practitioner, or a physician's high school assistant football coach working with me, has a face-to -face encounter with this patient.
== END 2016-11-12 14:15 | disposition home health service (06) ==
LOC: EMEROO 15:50 → 3BNU 15:50 → SUATTDRO 18:33 → 3BNU 19:06
PROVIDERS: ADMIT Internal Medicine; ATTEND Internal Medicine Endocrinology, Diabetes & Metabolism